=== PATIENT | male | born 1980 | race Caucasian/White ===

== ENCOUNTER 2016-12-24 20:18 | Emergency (ER) | payer SELFPAY ==
[~2016-12-24] VITALS: Ht 170.2 cm; Wt 80.0 kg
[~2016-12-24 20:18] MED LIST: LORT5TAB PO; SULF1TAB47 PO; VIBR50SY PO; XANA2TAB2 PO
[2016-12-24 20:20] VITALS: BP 140/92; PULSE 100; RESP 16; TEMP 98.3; O2SAT 98
--- NOTE | 2016-12-24 20:44 | PD ---
Physical Exam Date Seen by Provider: Dec 24, 2016 Time Seen by Provider: 20:43 Narrative 36 yo male here for rash to the inner tights bilaterally. Applying cream and ointment OTC with no relief. Nothing makes it better. 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 On the crease of the legs. Vitals are stable in triage. Awaiting Bed placement. Data Data Last Documented VS Vital Signs Date Time Temp Pulse Resp B/P Pulse Ox O2 Delivery O2 Flow Rate FiO2 12/24/16 20:20 98.3 100 16 140/92 98 Room Air [facility] Medical Record Reviewed: Yes Supervised Visit with GERRY: Joe Barlow Dec 24, 2016 20:44
[2016-12-24] MEDS ORDERED: BACT800T5 PO (21:08)
--- NOTE | 2016-12-24 21:12 | PD ---
HPI Chief Complaint: Skin Problem Time Seen by Provider: 21:08 Travel History International Travel<30 days: No Contact w/Intl Traveler<30days: No Traveled to known affect area: No History of Present Illness HPI 36-year-old white male presents to emergency Department with complaints of a rash to his inner thighs and groin over the last week or so. He is been using [id number] medications without relief. He has tried Micatin, Gold Kauffman and several other. He states the area is burning and itching. 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 He denies any fever or chills. No nausea vomiting. He does admit to being hot and sweaty all the time and rubbing. States he does feel chafed. PFSH Past Medical History Narrative Medical Anxiety, bilateral femur fractures, cervical and lumbar fractures Anxiety: Yes Tetanus Vaccination: < 5 Years Past Surgical History Narrative Surgical Bilateral femur fracture with rods, cervical and lumbar fracture stabilization Social History Alcohol Use: Yes (OCC) Tobacco Use: Yes (1 PPD X 6 YEARS) Substance Use: Yes (COCAINE "FEW WEEKS AGO") Allergies-Medications (Allergen,Severity, Reaction): Coded Allergies: Penicillin (Verified Allergy, Mild, coma, 12/24/16) Reported Meds & Prescriptions Reported Meds & Active Scripts Active Bactrim DS (Sulfamethoxazole-Trimethoprim) 800-160 Mg Tab 1 Tab PO BID Lortab 5/500 (Acetaminophen/Hydrocodone Bitart) 5 Mg/500 Mg Tab 1-2 Tab PO Q4- 6HPRN FOR PAIN Vibramycin (Doxycycline Calcium) 50 Mg/5 Ml Syp 100 Mg PO BID 7 Days Bactrim Ds (Trimethoprim/Sulfamethoxazole) Tab 1 Tab PO BID Reported Xanax 2 mg (Alprazolam) 2 Mg Tab 2 Mg PO Review of Systems Except as stated in HPI: all other systems reviewed are Neg Physical Exam Narrative GENERAL: This is a well-nourished, well-developed patient, in no apparent distress. SKIN: The patient has an erythematous maculopapular rash to the inner thighs and groin., ecchymoses or lesions. Warm and dry. HEAD: Atraumatic. Normocephalic. EYES: PERRL, EOMI, no discharge or injection. No scleral icterus. EARS: Clear NOSE: Nasal turbinates appear normal. THROAT: Mucosa pink and moist. Airway patent. NECK: Trachea midline. supple, moves head freely. LUNGS: Clear to auscultation. CV: Regular in rhythm. ABDOMEN: Soft nontender. EXT: No clubbing cyanosis or edema. Data Data Last Documented VS Vital Signs Date Time Temp Pulse Resp B/P Pulse Ox O2 Delivery O2 Flow Rate FiO2 12/24/16 20:20 98.3 100 16 140/92 98 Room Air MDM Medical Decision Making Medical Screen Exam Complete: Yes Emergency Medical Condition: Yes Medical Record Reviewed: Yes Differential Diagnosis MDM: High Differential diagnoses: Abscess, folliculitis, cellulitis, lymphangitis, abrasion, contact dermatitis tinea cruris Narrative Course This is tinea cruris Diagnosis Primary Impression: Tinea cruris Patient Instructions: General Instructions Departure Forms: Tests/Procedures Additional Instructions: Rest. Daily soap and water and keep clean and dry. Lamisil AT applied 2-3 times a day. Bactrim DS. Where comfortable cotton closed. Keep your thighs clean and dry. Follow-up with a medical doctor in one week. Return to the ER for emergencies. Med/Other Pt SpecificInfo: Prescription(s) given Scripts Sulfamethoxazole-Trimethoprim (Bactrim DS)800-160 Mg Tab1 Tab PO BID #20 TAB Prov:Rika Calzada MD 12/24/16 Disposition: 01 DISCHARGE HOME Condition: Stable Drake Rosenbaum Dec 24, 2016 21:12
== END 2016-12-24 21:30 | disposition home or self-care (01) ==
LOC: NEPK 20:18
DX: B35.6 Tinea cruris (principal)
CPT/HCPCS: 99283